=== PATIENT | female | born 1980 | race Caucasian/White ===

== ENCOUNTER 2020-11-13 17:27 | Emergency (ER) | payer OTHER ==
[~2020-11-13] VITALS: Ht 175.3 cm; Wt 115.2 kg
[2020-11-13] MEDS ORDERED: CELEXA 10 MG TA10 M1 PO (17:47)
[2020-11-13] MEDS ORDERED: LISINOPRIL10 MG PO (17:47)
[2020-11-13] MEDS ORDERED: NOVOLIN R100 UNIT/3 IMPLANT (17:48)
[2020-11-13] MEDS ORDERED: ZPAK PO (17:50)
[2020-11-13] MEDS ORDERED: DEXAMETHASONE 44 M1 PO (17:50)
[2020-11-13] MEDS ORDERED: TESSALON PERLE100 MG PO (18:15)
[2020-11-13 18:21] VITALS: BP 134/70
== END 2020-11-13 18:22 | disposition home or self-care (01) ==
LOC: M.ERS 17:27
DX: U07.1 COVID-19 (principal); Z79.899 Other long term (current) drug therapy; Z79.4 Long term (current) use of insulin; Z91.048 Other nonmedicinal substance allergy status